=== PATIENT | male | born 1935 | race Caucasian/White ===

== ENCOUNTER 2016-10-01 07:17 | Outpatient (CLI) | payer MEDICARE, OTHER | END 2016-10-01 07:18 | disposition home or self-care (01) | DX: Z12.5 Encounter for screening for malignant neoplasm of prostate (principal); E78.5 Hyperlipidemia, unspecified; H53.2 Diplopia; R73.01 Impaired fasting glucose; Z79.899 Other long term (current) drug therapy; I10 Essential (primary) hypertension; I25.10 Atherosclerotic heart disease of native coronary artery without angina pectoris; K21.9 Gastro-esophageal reflux disease without esophagitis | CPT/HCPCS: 36415; 80053; 80061; 83036; 84443; 85025; 85651; 86140; G0103 ==

== ENCOUNTER 2017-05-01 15:10 | Outpatient (CLI) | payer MEDICARE, OTHER | END 2017-05-01 15:11 | disposition home or self-care (01) | LOC: LAB 15:10 | PROVIDERS: ATTEND Urology | DX: R97.20 Elevated prostate specific antigen [PSA] (principal) | CPT/HCPCS: 36415; 84153 ==

== ENCOUNTER 2017-05-20 08:08 | Outpatient (CLI) | payer MEDICARE, OTHER ==
[2017-05-20 08:40] LABS: BASOPHILS % (AUTO) 0.9 %; EOSINOPHILS # (AUTO) 0.3 10^3/uL (0.0-0.7); EOSINOPHILS % (AUTO) 6.4 %; HCT - HEMATOCRIT 43.6 % (42.0-52.0); HGB - HEMOGLOBIN 14.5 g/dL (14.0-18.0); LYMPHOCYTES # (AUTO) 1.5 10^3/uL (1.5-3.5); LYMPHOCYTES % (AUTO) 31.2 %; MEAN CORPUSCULAR HEMOGLOBIN 29.4 pg (27.0-31.0); MEAN CORPUSCULAR HGB CONC 33.2 g/dL (32.0-36.0); MEAN CORPUSCULAR VOLUME 88.5 fL (80.0-94.0); MEAN PLATELET VOLUME 8.5 fL (7.4-11.4); MONOCYTES # (AUTO) 0.5 10^3/uL (0.0-1.0); MONOCYTES % (AUTO) 10.5 %; NEUTROPHILS # (AUTO) 2.5 10^3/uL (1.5-6.6); NUCLEATED RED BLOOD CELLS AUTO 0.1 /100WBC; RED BLOOD COUNT 4.93 10^6/uL (4.70-6.10); RED CELL DISTRIBUTION WIDTH 13.2 % (12.0-15.0); UNCORRECTED WHITE BLOOD COUNT 4.9 x10^3/uL; WHITE BLOOD COUNT 4.9 x10^3/uL (4.8-10.8)
[2017-05-20 08:59] LABS: HEMOGLOBIN A1C 0.57 g/dL
[2017-05-20 09:13] LABS: ALBUMIN/GLOBULIN RATIO 1.4 (1.0-2.2); BILIRUBIN,TOTAL 1.1 mg/dL (0.2-1.0); BUN - BLOOD UREA NITROGEN 18 mg/dL (6-20); CALCIUM 9.2 mg/dL (8.5-10.3); CARBON DIOXIDE - CO2 26 mmol/L (21-32); CHLORIDE 104 mmol/L (101-111); CHOL/HDL RATIO 2.4 (<5.0); CHOLESTEROL 129 mg/dL; GFR - MDRD 72 (>89); GLUCOSE 97 mg/dL (70-100); HDL CHOLESTEROL 54 mg/dL; LDL/HDL RATIO 1.2 (<3.6); POTASSIUM 4.4 mmol/L (3.5-5.0); SODIUM 138 mmol/L (135-145); TRIGLYCERIDES 43 mg/dL; VLDL CHOLESTEROL 9 mg/dL
== END 2017-05-20 08:09 | disposition home or self-care (01) ==
LOC: LAB 08:08
PROVIDERS: ATTEND Internal Medicine
DX: Z79.899 Other long term (current) drug therapy (principal); I10 Essential (primary) hypertension; I25.10 Atherosclerotic heart disease of native coronary artery without angina pectoris; K21.9 Gastro-esophageal reflux disease without esophagitis; E78.5 Hyperlipidemia, unspecified; R73.01 Impaired fasting glucose; R09.82 Postnasal drip
CPT/HCPCS: 36415; 80053; 80061; 82550; 83036; 84443; 85025

== ENCOUNTER 2017-10-01 07:19 | Day surgery (SDC) | payer MEDICARE, OTHER ==
[~2017-10-01 07:19] MED LIST: BRIMONIDINE 0.2% OPHTH DROPS 5 ML ONE; CYCLOPENTOLATE 1% OPHTH DROPS 2 ML ONE; KETOROLAC 0.45% OPHTH DROPS ONE; LACTATED RINGERS 1,000 ML IV ONE; PHENYLEPHRINE 2.5% OPHTH 2 ML DROPS ONE; PROPARACAINE 0.5% OPHTH DROPS 15 ML ONE; TIMOLOL 0.5% OPHTH DROPS ONE
[2017-10-01] MEDS ORDERED: MIDAZOLAM 2 MG/2 ML VIAL IVP ONE (08:13)
[2017-10-01] MEDS ORDERED: fentaNYL 100 MCG/2 ML VIAL IVP ONE (08:13)
[2017-10-01 09:02] VITALS: BP 118/59
== END 2017-10-01 07:20 | disposition home or self-care (01) ==
LOC: SDS 07:19
PROVIDERS: ATTEND Surgery
PROC: 0DBK8ZX Excision of Ascending Colon, Via Natural or Artificial Opening Endoscopic, Diagnostic (ICD-10-PCS; principal; 2017-10-01 08:15)
DX: R19.4 Change in bowel habit (principal); K57.30 Diverticulosis of large intestine without perforation or abscess without bleeding; K64.8 Other hemorrhoids; K63.5 Polyp of colon; Z86.010 Personal history of colon polyps; K21.9 Gastro-esophageal reflux disease without esophagitis; F17.210 Nicotine dependence, cigarettes, uncomplicated
CPT/HCPCS: 45385; A9270; J7120

== ENCOUNTER 2018-05-18 13:38 | Outpatient (CLI) | payer MEDICARE, OTHER | END 2018-05-18 13:39 | disposition home or self-care (01) | LOC: LAB.F 13:38 | PROVIDERS: ATTEND Urology | DX: R97.20 Elevated prostate specific antigen [PSA] (principal) | CPT/HCPCS: 36415; 84153 ==

== ENCOUNTER 2018-06-28 10:39 | Outpatient (CLI) | payer MEDICARE, OTHER ==
[2018-06-28 11:08] LABS: CREATININE 0.9 mg/dL (0.6-1.2)
[2018-06-28] MEDS ORDERED: IOVERSOL 320 50 ML VIAL ONE (11:36)
[2018-06-28] MEDS ORDERED: IOVERSOL 320 100 ML VIAL IVP ONE ×2 (11:36→13:12)
[2018-06-28] MEDS ORDERED: IOVERSOL 320 50 ML VIAL PO ONE (13:12)
--- NOTE | 2018-06-28 14:37 | CT Report ---
Reason: LIVER LESION Procedure Date: 06/28/2018 Accession Number: [id number] / [id number] Procedure: CT - Abdomen W/WO CPT Code: FULL RESULT: EXAM: CT ABDOMEN WITHOUT AND WITH CONTRAST EXAM DATE: 06/28/2018 12:35 PM. HISTORY: Liver lesion. COMPARISON: CT ABDOMEN/PELVIS WITH CONTRAST 08/23/2017 1:19 PM. TECHNIQUE: Routine helical CT imaging was performed through the abdomen before and after administration of IV contrast: OPTIRAY 320 90mL. Enteric contrast: Yes. Reconstruction: Coronal and sagittal. In accordance with CT protocol optimization, one or more of the following dose reduction techniques were utilized for this exam: automated exposure control, adjustment of mA and/or KV based on patient size, or use of iterative reconstructive technique. FINDINGS: Lung Bases: Unremarkable. Liver: A subcentimeter segment Jesse hypodensity which is too small to characterize is redemonstrated, essentially unchanged. No suspicious hepatic lesion is seen. Gallbladder/Bile Ducts: Unremarkable. Spleen: Normal. Pancreas: Normal. No masses or ductal obstruction. Adrenal Glands: Normal. Kidneys: Normal. No masses or hydronephrosis. Peritoneal Cavity/Bowel: Normal. No free fluid, free air or adenopathy. No masses or acute inflammatory process. Vasculature: Marked atherosclerotic disease with a previously demonstrated left common iliac artery aneurysm which is incompletely imaged on this study. Bones: No significant abnormality. Other: None. IMPRESSION: Redemonstration of a stable subcentimeter hepatic hypodensity which is too to characterize. No suspicious hepatic lesions. Left common iliac artery aneurysm, incompletely visualized. Recommend annual surveillance with CT. The aneurysm measured 2.5 cm in August. Repair is generally performed at 3.5 cm or greater. RADIA
== END 2018-06-28 10:40 | disposition home or self-care (01) ==
LOC: LAB 10:39 → DI 10:40
PROVIDERS: ATTEND Internal Medicine
DX: K76.9 Liver disease, unspecified (principal); I72.3 Aneurysm of iliac artery
CPT/HCPCS: 36415; 74170; 82565; Q9967

== ENCOUNTER 2018-11-25 09:55 | Outpatient (CLI) | payer MEDICARE, OTHER ==
--- NOTE | 2018-11-25 13:56 | Mammography Report ---
Reason: L BREAST LUMP 8 O'CLOCK Procedure Date: 11/25/2018 Accession Number: [id number] / [id number] Procedure: ANNALEE - Diagnostic Dig Bilat CPT Code: FULL RESULT: EXAM: Diagnostic Dig Bilat DATE: 11/25/2018 10:32 AM CLINICAL HISTORY: Diagnostic examination. The patient presents with interval enlargement of a previously worked up left breast lump, previously characterized as lipoma. TECHNIQUE: (B) - Bilateral CC and MLO views were obtained. COMPARISON: 01/22/2015 and 03/20/2009. PARENCHYMAL PATTERN: (F) - The breast(s) demonstrate(s) diffuse fatty replacement. FINDINGS: Normal breast parenchymal tissue is identified. The region marked as palpable in the left breast demonstrates no mammographic abnormality. This is consistent with the previously identified lipoma which is isodense to nonglandular breast tissue. There are no suspicious masses, calcifications, or areas of distortion. IMPRESSION: Negative examination. BI-RADS category 1. RECOMMENDATION: (CLIN) - Clinical follow-up for symptoms is recommended. BI-RADS CATEGORY: (1) - Negative. STANDARD QUALIFYING STATEMENTS: 1. This examination was not reviewed with the aid of Computer-Aided Detection (CAD). 2. A negative or benign imaging report should not preclude biopsy if clinically suspicious findings are present. 3. Dense breasts may obscure an underlying neoplasm. 4. This examination was reviewed without the aid of 3D breast imaging (tomosynthesis).
== END 2018-11-25 09:56 | disposition home or self-care (01) ==
LOC: DI 09:55
PROVIDERS: ATTEND Internal Medicine
DX: N63.24 Unspecified lump in the left breast, lower inner quadrant (principal)
CPT/HCPCS: 77066

== ENCOUNTER 2019-04-15 13:39 | Outpatient (CLI) | payer MEDICARE, OTHER | END 2019-04-15 13:40 | disposition home or self-care (01) | LOC: LAB.S 13:39 | PROVIDERS: ATTEND Urology | DX: Z87.898 Personal history of other specified conditions (principal); Z98.890 Other specified postprocedural states; Z12.5 Encounter for screening for malignant neoplasm of prostate | CPT/HCPCS: 36415; G0103; 84153 ==

== ENCOUNTER 2019-06-09 12:06 | Outpatient (CLI) | payer MEDICARE, OTHER ==
[2019-06-09 12:49] LABS: ALBUMIN/GLOBULIN RATIO 1.3 (1.0-2.2); ALKALINE PHOSPHATASE 49 IU/L (42-121); ALT ALANINE AMINOTRANSFERASE 19 IU/L (10-60); AST ASPARTATE AMINOTRANSFERASE 22 IU/L (10-42); BILIRUBIN,TOTAL 0.9 mg/dL (0.2-1.0); BUN - BLOOD UREA NITROGEN 19 mg/dL (6-20); CALCIUM 9.1 mg/dL (8.5-10.3); CARBON DIOXIDE - CO2 29 mmol/L (21-32); CHLORIDE 105 mmol/L (101-111); CHOL/HDL RATIO 2.2 (<5.0); CHOLESTEROL 117 mg/dL; CREATININE 0.9 mg/dL (0.6-1.2); GFR - MDRD 81 (>89); GLUCOSE 104 mg/dL (70-100); HDL CHOLESTEROL 54 mg/dL; LDL CHOLESTEROL,CALCULATED 50 mg/dL; LDL/HDL RATIO 0.9 (<3.6); SODIUM 140 mmol/L (135-145); TOTAL PROTEIN 7.2 g/dL (6.7-8.2); VLDL CHOLESTEROL 13 mg/dL
== END 2019-06-09 12:07 | disposition home or self-care (01) ==
LOC: LAB 12:06
PROVIDERS: ATTEND Internal Medicine Cardiovascular Disease
DX: E78.5 Hyperlipidemia, unspecified (principal); I25.10 Atherosclerotic heart disease of native coronary artery without angina pectoris
CPT/HCPCS: 36415; 80053; 80061; 83721

== ENCOUNTER 2019-06-17 10:47 | Outpatient (CLI) | payer MEDICARE, OTHER ==
[2019-06-17] MEDS ORDERED: IOVERSOL 320 100 ML VIAL IVP ONE ×2 (10:56→12:04)
[2019-06-17 11:28] LABS: CREATININE 0.9 mg/dL (0.6-1.2)
--- NOTE | 2019-06-17 14:53 | CT Report ---
Reason: LT COMMON ILIAC ARTERY ANEURYSM Procedure Date: 06/17/2019 Accession Number: [id number] / [id number] Procedure: CT - ANGIO PELVIS W/WO CPT Code: Final Report FULL RESULT: EXAM: CT PELVIS EXAM DATE: 06/17/2019 12:02 PM. CLINICAL HISTORY: LT COMMON ILIAC ARTERY ANEURYSM. COMPARISONS: ABDOMEN W/WO 06/28/2018 12:07 PM ABDOMEN ANGIO 06/17/2019 11:[address] ABDOMEN / PELVIS WITH CONTRAST 08/23/2017 1:19 PM. TECHNIQUE: Routine helical CT imaging was performed through the pelvis. IV contrast: OPTI 320 100ML. Enteric contrast: No. Reconstructions: Coronal and sagittal. In accordance with CT protocol optimization, one or more of the following dose reduction techniques were utilized for this exam: automated exposure control, adjustment of mA and/or KV based on patient size, or use of iterative reconstructive technique. FINDINGS: Visualized Abdominal Organs: Normal. Peritoneal Cavity/Bowel: Normal. No free fluid, free air or adenopathy. No masses or acute inflammatory process. Scattered sigmoid colonic diverticula. The appendix is well visualized and normal. Pelvic Organs: Unremarkable urinary bladder. Enlarged prostate measuring 6 cm width. No enlarged pelvic lymph nodes. Rectum appears unremarkable. Vasculature: Mild to moderate scattered calcifications in the distal abdominal aorta and common iliac arteries bilaterally. The distal aspect of the left common iliac artery is aneurysmal measuring 2.6 cm in caliber. The mid right common iliac artery is ectatic measuring 1.7 cm in caliber. The external iliac arteries and common femoral arteries bilaterally are normal in caliber. No flow-limiting stenoses identified. Hypogastric arteries are also unremarkable. Bones: No significant abnormality. Other: None. IMPRESSION: 1. Essentially stable left common iliac artery aneurysm measuring up to 2.6 cm in caliber. No evidence for rupture. 2. Unchanged ectasia of the right common iliac artery measuring up to 1.7 cm caliber. 3. Mild to moderate atherosclerotic calcification of the distal abdominal aorta and bilateral common iliac arteries. No evidence of flow-limiting stenosis. RADIA
--- NOTE | 2019-06-17 17:23 | CT Report ---
Reason: LT COMMON ILIAC ARTERY ANEURYSM Procedure Date: 06/17/2019 Accession Number: [id number] / [id number] Procedure: CT - ANGIO ABDOMEN W/WO CPT Code: Final Report FULL RESULT: EXAM: CTA ABDOMEN INDICATION: Left common iliac artery aneurysm. TECHNIQUE: Following intravenous administration of Optiray 320 100 mL, axial sections were obtained through the abdomen. Multiplanar 3D reconstructions are available for interpretation. In accordance with CT protocol optimization, one or more of the following dose reduction techniques were utilized for this exam: automated exposure control, adjustment of mA and/or KV based on patient size, or use of iterative reconstructive technique. COMPARISON: ABDOMEN W/WO 06/28/2018. FINDINGS: MEASUREMENTS: At the level of the diaphragm, the aorta measures 28 mm. Above the renal arteries, the aorta measures 23 mm. Below the renal arteries, the aorta measures 22 mm. Above the iliac bifurcation, the aorta measures 21 mm. UPPER ABDOMINAL AORTA: Peripheral calcified and noncalcified plaque is seen in the upper abdominal aorta. No dissection or aneurysm. MESENTERIC ARTERIES: Distally the celiac artery is prominent measuring 11 mm, as before. Splenic artery and hepatic artery are patent. SMA is widely patent with mild atheromatous disease. TASHI is patent. No severe stenosis. RENAL ARTERIES: Single renal arteries are present. Mild atheromatous disease is seen in the renal arteries proximally without evidence for significant stenosis. No aneurysm or occlusion. CT ABDOMEN AND PELVIS: Bibasilar scar/atelectasis. Heart size upper normal. Small hiatal hernia. Liver, spleen, adrenals and pancreas are unremarkable. Kidneys enhance symmetrically. No hydronephrosis. No ureteral dilatation. Stomach is mildly distended and unremarkable. No small-bowel obstruction or small-bowel wall thickening is identified. Several diverticula are seen in differing portions of the colon. Small volume of stool is seen in the visualized colon. No evidence for diverticulitis. Visualized appendix is normal. No enlarged retroperitoneal or mesenteric lymph nodes. Degenerative changes of the lower thoracic and lumbar spine. 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 IMPRESSION: 1. Atheromatous disease of the abdominal aorta. No evidence for aneurysm or dissection. RAD[facility]
== END 2019-06-17 10:48 | disposition home or self-care (01) ==
LOC: LAB 10:47 → DI 10:48
PROVIDERS: ATTEND Internal Medicine
DX: I72.3 Aneurysm of iliac artery (principal); I70.0 Atherosclerosis of aorta; I70.8 Atherosclerosis of other arteries
CPT/HCPCS: 36415; 74174; 82565; Q9967; 72191; 74175

== ENCOUNTER 2020-06-21 11:14 | Outpatient (CLI) | payer MEDICARE, OTHER ==
[2020-06-21] MEDS ORDERED: IOVERSOL 320 100 ML VIAL IVP ONE ×2 (11:34→13:29)
--- NOTE | 2020-06-21 15:31 | CT Report ---
PROCEDURE: ANGIO PELVIS W/WO INDICATIONS: COMMON ILIAC ARTERY ANEURYSM TECHNIQUE: Axial 5 mm thin sections through the pelvis were obtained during arterial phase of contras t infusion COMPARISON: Similar CT scanning 06/17/2019 reviewed.. FINDINGS: Tortuosity of the common iliac arteries bilaterally is stable over time, greater on the left than the right. The maximal axial dimension of the left common iliac artery through the area of tortuosity is 2.6 cm, as was previously the case 1 year ago. No evidence of dissection or perianeurysmal fibrosis or aneurysm leak is present. Ectasia of the right common iliac artery also is stable over time. The c ourse of the external iliac arteries bilaterally is normal and no common femoral aneurysm is suspecte d. IMPRESSION: Stable 2.6 cm aneurysmal dilatation of the left common iliac artery, which is also tortuous as was pr eviously the case to the same degree. This is in reference to the comparison similar CT from 1 year a go. No worrisome findings that would indicate aneurysm leak or development of dissection. Reviewed by: Misael Conte MD on 06/21/2020 3:30 PM PST Approved by: Misael Conte MD on 06/21/2020 3:30 PM PST Station ID: [id number]
--- NOTE | 2020-06-21 17:01 | CT Report ---
PROCEDURE: ANGIO ABDOMEN W/WO INDICATIONS: COMMON ILIAC ARTERY ANEURYSM TECHNIQUE: Axial 5 mm thin sections through the lower chest and abdomen were obtained during contrast infusion optimize for arterial visualization. COMPARISON: Prior CT abdomen angiogram 06/17/2019. FINDINGS: No aortic stenosis or dissection is found. Mild ectasia of the low thoracic aorta, but eccentric or f usiform aneurysm within the abdomen is not seen to the level of the pelvis. 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 No abdominal aortic aneurysm or dissection or stenosis i s found. Reviewed by: Misael Conte MD on 06/21/2020 5:00 PM PST Approved by: Misael Conte MD on 06/21/2020 5:00 PM PST Station ID: [id number]
== END 2020-06-21 11:15 | disposition home or self-care (01) ==
LOC: DI 11:14
PROVIDERS: ATTEND Internal Medicine
DX: I72.3 Aneurysm of iliac artery (principal); Z79.899 Other long term (current) drug therapy
CPT/HCPCS: 36415; 72191; 74175; 82565; Q9967

== ENCOUNTER 2021-04-22 07:52 | Outpatient (CLI) | payer MEDICARE, OTHER ==
[2021-04-22 08:18] LABS: BASOPHILS # (AUTO) 0.1 10^3/uL (0.0-0.1); BASOPHILS % (AUTO) 1.2 %; EOSINOPHILS # (AUTO) 0.3 10^3/uL (0.0-0.7); EOSINOPHILS % (AUTO) 7.4 %; HGB - HEMOGLOBIN 13.6 g/dL (14.0-18.0); LYMPHOCYTES # (AUTO) 1.4 10^3/uL (1.5-3.5); LYMPHOCYTES % (AUTO) 31.9 %; MEAN CORPUSCULAR HGB CONC 32.4 g/dL (32.0-36.0); MEAN CORPUSCULAR VOLUME 92.5 fL (80.0-94.0); MEAN PLATELET VOLUME 10.9 fL (7.4-11.4); MONOCYTES # (AUTO) 0.5 10^3/uL (0.0-1.0); MONOCYTES % (AUTO) 11.6 %; NEUTROPHILS # (AUTO) 2.1 10^3/uL (1.5-6.6); NEUTROPHILS % (AUTO) 47.7 %; PLT - PLATELET COUNT 166 10^3/uL (130-450); RED BLOOD COUNT 4.54 10^6/uL (4.70-6.10); WHITE BLOOD COUNT 4.3 x10^3/uL (4.8-10.8)
[2021-04-22 08:35] LABS: ALBUMIN 4.4 g/dL (3.2-5.5); ALBUMIN/GLOBULIN RATIO 1.8 (1.0-2.2); ALKALINE PHOSPHATASE 52 IU/L (42-121); ALT ALANINE AMINOTRANSFERASE 19 IU/L (10-60); AST ASPARTATE AMINOTRANSFERASE 22 IU/L (10-42); BILIRUBIN,TOTAL 0.8 mg/dL (0.2-1.0); BUN - BLOOD UREA NITROGEN 18 mg/dL (6-20); CALCIUM 9.3 mg/dL (8.5-10.3); CARBON DIOXIDE - CO2 28 mmol/L (21-32); CHLORIDE 104 mmol/L (101-111); CHOL/HDL RATIO 2.3 (<5.0); CHOLESTEROL 136 mg/dL; CREATININE 0.9 mg/dL (0.6-1.2); GFR - MDRD 80 (>89); GLUCOSE 102 mg/dL (70-100); HDL CHOLESTEROL 60 mg/dL; LDL CHOLESTEROL,CALCULATED 68 mg/dL; LDL/HDL RATIO 1.1 (<3.6); POTASSIUM 4.5 mmol/L (3.5-5.0); SODIUM 139 mmol/L (135-145); TOTAL PROTEIN 6.9 g/dL (6.7-8.2); TRIGLYCERIDES 41 mg/dL; VLDL CHOLESTEROL 8 mg/dL
[2021-04-22 09:10] LABS: PSA FREE 2.235 ng/mL (0.16-2.81)
[2021-04-22 09:11] LABS: PSA TOTAL 6.901 ng/mL (0.000-2.000)
[2021-04-22 13:17] LABS: ESTIMATED AVERAGE GLUCOSE 100 mg/dL (70-100); HEMOGLOBIN A1c% 5.1 % (4.27-6.07)
== END 2021-04-22 07:53 | disposition home or self-care (01) ==
LOC: LAB 07:52
PROVIDERS: ATTEND Internal Medicine
DX: Z13.6 Encounter for screening for cardiovascular disorders (principal); Z79.899 Other long term (current) drug therapy; I10 Essential (primary) hypertension; I25.10 Atherosclerotic heart disease of native coronary artery without angina pectoris; R97.20 Elevated prostate specific antigen [PSA]; R73.01 Impaired fasting glucose; K21.9 Gastro-esophageal reflux disease without esophagitis; E78.5 Hyperlipidemia, unspecified; C44.91 Basal cell carcinoma of skin, unspecified
CPT/HCPCS: 36415; 80053; 80061; 82306; 83036; 83721; 84153; 84154; 84443; 85025

== ENCOUNTER 2021-07-30 09:20 | Outpatient (CLI) | payer MEDICARE, OTHER ==
--- NOTE | 2021-07-30 16:36 | MRI Report ---
PROCEDURE: Knee LT W/O INDICATIONS: LEFT KNEE PAIN TECHNIQUE: Noncontrast sagittal PD fast spin echo and T2 fast spin echo with fat saturation, sagittal 3-D gradie nt sequence with fat saturation; coronal T1 spin echo and PD fast spin echo with fat saturation, and axial PD fast spin echo with fat saturation through the knee. COMPARISON: Left knee radiograph dated 03/19/2010. FINDINGS: Image quality: Excellent. Menisci: Complex oblique tear involving body/posterior horn junction of medial meniscus extending to both superior and inferior articulating surfaces. There is no evidence of focal lateral meniscal tear .. The meniscal root ligaments appear intact. Cruciate ligaments: Degenerative changes are noted in anterior and posterior cruciate ligaments. No f ull-thickness ACL or PCL ruptures. Medial structures: Low-grade MCL sprain is seen.. The posterior oblique ligament, semimembranosus te ndon insertions, and oblique popliteal ligament, and meniscocapsular junction appear intact. Visuali zed portions of the pes anserinus tendons appear normal. No abnormal bursal fluid. Lateral structures: There is low to moderate grade LCL sprain/partial thickness tear. The long and sh ort heads of the biceps femoris tendon appear intact. The popliteus tendon appears normal; the popli teofibular ligament appears intact. The posterosuperior and anteroinferior popliteomeniscal fascicle s appear intact. The arcuate and fabellofibular ligaments appear intact, around the lateral inferior geniculate artery. Iliotibial band appears normal. Anterior structures: The quadriceps and patellar tendons appear intact. Patellar alignment is john l. No femoral trochlear dysplasia or ventral trochlear prominence. No edema in the infrapatellar fa t pad. Bones and cartilage: No bone marrow contusions or fractures. Moderate tricompartmental osteoarthriti s and chondromalacia is seen most prominent in medial femoral tibial compartment. Joint space: There is physiologic knee joint fluid. No Wu's cyst. Normal appearing synovial pli are incidentally noted. IMPRESSION: 1. 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 No fracture or dislocation. No significant joint effusion. 2. Complex oblique tear involving body/posterior horn junction of medial meniscus extending to both s uperior and inferior articulating surfaces. No focal lateral meniscal tear. 3. Degenerative changes in ACL and PCL. No full-thickness cruciate ligament rupture. 4. Low-grade MCL sprain. Low to moderate grade LCL sprain/partial thickness tear. Reviewed by: Saúl Silva MD on 07/30/2021 4:35 PM PST Approved by: Saúl Silva MD on 07/30/2021 4:35 PM PST Station ID: [id number]
== END 2021-07-30 09:21 | disposition home or self-care (01) ==
LOC: DI 09:20
PROVIDERS: ATTEND Internal Medicine
DX: M17.12 Unilateral primary osteoarthritis, left knee (principal); S83.232A Complex tear of medial meniscus, current injury, left knee, initial encounter; S83.412A Sprain of medial collateral ligament of left knee, initial encounter; S83.422A Sprain of lateral collateral ligament of left knee, initial encounter

== ENCOUNTER 2021-08-17 14:34 | Outpatient (CLI) | payer MEDICARE, OTHER ==
--- NOTE | 2021-08-17 16:59 | Ultrasound Report ---
PROCEDURE: Carotid Doppler Complete INDICATIONS: CAD, STENOSIS OF CAROTID ARTERY TECHNIQUE: Color and pulse Doppler interrogation was performed of both carotid systems, with image documentation and velocity measurements. COMPARISON: None. FINDINGS: Right side: Brachial blood pressure: 143/76 mm Hg. Common carotid artery peak systolic velocity: 104 cm/sec. Internal carotid artery peak systolic velocity: 71 cm/sec. Internal carotid artery end diastolic velocity: 16 cm/sec. External carotid artery peak systolic velocity: 77 cm/sec. ICA/CCA peak systolic ratio: 0.7 . Hunter scale imaging description: Mild Percent internal carotid artery stenosis: Mild . Vertebral artery: Flow direction is antegrade. Left side: Brachial blood pressure: 146/72 mm Hg. Common carotid artery peak systolic velocity: 81 cm/sec. Internal carotid artery peak systolic velocity: 54 cm/sec. Internal carotid artery end diastolic velocity: 19 cm/sec. External carotid artery peak systolic velocity: 84 cm/sec. ICA/CCA peak systolic ratio: 0.6 . Hunter scale imaging description: Mild Percent internal carotid artery stenosis: None . Vertebral artery: Flow direction is antegrade. IMPRESSION: Atherosclerotic calcification noted in the right proximal internal carotid artery without evidence of hemodynamically significant stenosis bilaterally. The estimate of stenosis included in the report of the imaging study was calculated using the NASCET method Reviewed by: Alec Chavez MD on 08/17/2021 3:57 PM [facility] Approved by: Alec Chavez MD on 08/17/2021 3:57 PM [facility] Station ID: [id number]
== END 2021-08-17 14:35 | disposition home or self-care (01) ==
LOC: DI 14:34
PROVIDERS: ATTEND Internal Medicine Cardiovascular Disease
DX: I65.21 Occlusion and stenosis of right carotid artery (principal)
CPT/HCPCS: 93880

== ENCOUNTER 2022-01-01 07:36 | Outpatient (CLI) | payer MEDICARE, OTHER ==
--- NOTE | 2022-01-01 08:23 | Ultrasound Report ---
PROCEDURE: Duplex Ext Veins Left INDICATIONS: PAIN L LEG TECHNIQUE: Real-time imaging, as well as color and pulse Doppler interrogation, were performed of the lower extr emity deep veins from the inguinal ligament to the popliteal fossa. COMPARISON: None. FINDINGS: The deep veins are normally compressible, and free of intraluminal thrombus. Color and pu lse Doppler demonstrate normal phasic intraluminal flow. There is normal augmentation response to di stal compression maneuver. IMPRESSION: No sonographic evidence of DVT. Reviewed by: Celso Henderson MD on 01/01/2022 8:21 AM PDT Approved by: Celso Henderson MD on 01/01/2022 8:21 AM PDT Station ID: [id number]
== END 2022-01-01 07:37 | disposition home or self-care (01) ==
LOC: DI 07:36
PROVIDERS: ATTEND Internal Medicine
DX: M79.605 Pain in left leg (principal)

== ENCOUNTER 2022-04-11 09:43 | Outpatient (CLI) | payer MEDICARE, OTHER ==
--- NOTE | 2022-04-11 16:02 | Ultrasound Report ---
PROCEDURE: Duplex Aorta Complete INDICATIONS: LEFT ILIAC ARTERY ANEURYSM TECHNIQUE: Doppler and brewer scale ultrasound of the aorta and iliacs. COMPARISON: CT abdominal angiogram, 06/21/2020. CT pelvic angiogram, 06/21/2020.. FINDINGS: Proximal abdominal aorta measures 2.8 x 2.6 cm with triphasic waveform and peak systolic velocity 38 cm/s. Mid abdominal aorta measures 2.2 x 2.5 cmwith triphasic waveform and peak systolic velocity 43 cm/s. Distal abdominal aorta measures 2.1 x 2.3 cm with triphasic waveform and peak systolic velocity 37 cm /s. The right common iliac artery measures 2.2 x 2.1 cm with triphasic waveform and peak systolic velocit y 41 cm/s. The left common iliac artery measures 2.2 x 2.4 cm with triphasic waveform and peak systolic velocity 25 cm/s. The external iliacs and common femoral arteries are not well seen due to body habitus. IMPRESSION: 1. Ectatic proximal abdominal aorta. A follow-up ultrasound suggested in 5 years. 2. Normal waveform and peak systolic velocity in aorta and iliac arteries. 3. Ectatic common iliac arteries bilaterally. Reviewed by: Simi Hernandez MD on 04/11/2022 4:01 PM PDT Approved by: Simi Hernandez MD on 04/11/2022 4:01 PM PDT Station ID: [id number]
== END 2022-04-11 09:44 | disposition home or self-care (01) ==
LOC: DI 09:43
PROVIDERS: ATTEND Internal Medicine
DX: I77.811 Abdominal aortic ectasia (principal); I77.89 Other specified disorders of arteries and arterioles
CPT/HCPCS: 93978

== ENCOUNTER 2022-04-17 08:44 | Emergency (ER) | payer MEDICARE, OTHER ==
--- NOTE | 2022-04-17 09:55 | XRAY Report ---
PROCEDURE: Chest 1 View X-Ray INDICATIONS: cough TECHNIQUE: One view of the chest was acquired. COMPARISON: FINDINGS: Surgical changes and devices: None. Lungs and pleura: No pleural effusions or pneumothorax. Mild bilateral perihilar and left greater th an right bibasilar reticulonodular density. Mediastinum: Mediastinal contours appear normal. Heart size is normal. Bones and chest wall: No suspicious bony lesions. Left greater than right glenohumeral joint space narrowing and periarticular osteophyte formation, indicating osteoarthritis. Overlying soft tissues a ppear unremarkable. IMPRESSION: Mild atypical pneumonia. Reviewed by: Zully Oneill MD on 04/17/2022 9:54 AM PDT Approved by: Zully Oneill MD on 04/17/2022 9:54 AM PDT Station ID: [id number]
--- NOTE | 2022-04-17 11:01 | ED Physician Documentation ---
History of Present Illness - Stated complaint Stated Complaint: COUGH/ SHIVERS - Chief complaint Chief Complaint: General - History obtained from History obtained from: Patient - Additonal information Additional information: Patient is a 6-year-old male presenting for evaluation of cough for 2 days which is productive of clear phlegm as well as feeling cold. His recently tested positive for COVID. He has not taken a COVID test. He denies difficulty breathing or chest pain. He is not taking any medications for his symptoms. He has been able to hydrate. He denies headache, abdominal pain, vomiting, dysuria. He denies lower extremity swelling or pain. Review of Systems Constitutional: reports: Chills Nose: reports: Congestion Cardiac: denies: Chest pain / pressure Respiratory: reports: Cough. denies: Dyspnea GI: denies: Abdominal Pain Musculoskeletal: denies: Back pain Neurologic: denies: Headache PD PAST MEDICAL HISTORY - Past Medical History Cardiovascular: High cholesterol, Coronary artery disease, [place] Respiratory: None Endocrine/Autoimmune: None GI: GERD, Diverticulitis : None HEENT: None Musculoskeletal: None - Past Surgical History Past Surgical History: Yes General: Other Ortho: Arthroscopic surgery Cardiovascular: Coronary stent - Present Medications Home Medications: Ambulatory Orders Medication Instructions Recorded Confirmed Aspirin [Aspir 81] 81 mg PO DAILY 04/07/13 10/01/17 Metoprolol Succinate [Toprol Xl] 25 mg PO DAILY 04/07/13 10/01/17 Omeprazole Magnesium [Prilosec] 10 mg PO DAILY 04/07/13 10/01/17 Rosuvastatin Calcium [Crestor] 20 mg PO DAILY 10/28/15 10/01/17 Finasteride 5 mg PO DAILY #15 tablet 07/19/16 10/01/17 Doxycycline Monohydrate 100 mg PO BID #10 cap 04/17/22 - Allergies Allergies/Adverse Reactions: Allergies Allergy/AdvReac Type Severity Reaction Status Date / Time No Known Drug Allergies Allergy Verified 04/17/22 08:55 - Social History Does the pt smoke?: No Smoking Status: Never smoker Does the pt drink ETOH?: Yes Does the pt have substance abuse?: No - Immunizations Immunizations are current?: Yes Immunizations: TDAP current <10years - POLST Patient has POLST: No PD ED PE NORMAL - General General: Alert and oriented X 3, No acute distress, Well developed/nourished - HEENT HEENT: Atraumatic, Moist mucous membranes - Neck Neck: Supple, no meningeal sign - Cardiac Cardiac: RRR, No murmur, Strong equal pulses - Respiratory Respiratory: No respiratory distress, Clear bilaterally - Abdomen Abdomen: Non tender, Non distended - Derm Derm: Warm and dry - Extremities Extremities: No edema - Neuro Neuro: Normal speech Results - Vitals Vitals: Vital Signs - 24 hr 04/17/22 04/17/22 08:47 11:08 Temperature 37.6 C 37.1 C Heart Rate 98 88 Respiratory 16 16 Rate Blood Pressure 152/82 H 157/81 H O2 Saturation 95 97 Oxygen O2 Source Room air - Labs Labs: Laboratory Tests 04/17/22 08:56 SARS-CoV-2 (PCR) DETECTED A PD MEDICAL DECISION MAKING - ED course Complexity details: reviewed results ED course: Patient with URI symptoms. COVID test is positive. has also recently been ill with COVID. Oxygen levels are normal and he is not labored with his breathing. It does not require admission to the hospital for COVID. X-ray had also been done from triage and shows atypical pneumonia. I discussed that the etiology of this pneumonia is likely his COVID but that I could not rule out a superimposed bacterial infection. Discussed risks and benefits of an antibiotic and patient would also like to try an antibiotic at this time. He understands at this may not help his symptoms as again pneumonia may just all be from COVID.He agrees with plan for discharge and is aware of concerning symptoms to return for. Departure - Departure Disposition: 01 Home, Self Care Clinical Impression: Pneumonia due to COVID-19 virus Condition: Stable Instructions: ED Pneumonia Adult, COVID-19 [facility] Prescriptions: Doxycycline Monohydrate 100 mg PO BID #10 cap Comments: You have tested positive for COVID-19. Please quarantine per CDC guidelines. Please continue with hydration and rest. Your chest x-ray shows atypical pneumonia which could be from COVID or a bacterial infection. After a discussion with you, we have decided to start you on an oral antibiotic in case there is a bacterial component. I have sent a prescription for doxycycline to the [facility] pharmacy. If you have any worsening symptoms such as trouble breathing please return to the emergency department. Discharge Date/Time: 04/17/22 11:09
[2022-04-17 11:08] VITALS: BP 157/81
== END 2022-04-17 11:09 | disposition home or self-care (01) ==
LOC: ED 08:44
DX: U07.1 COVID-19 (principal); J12.82 Pneumonia due to coronavirus disease 2019
CPT/HCPCS: 99283

== ENCOUNTER 2022-05-28 07:34 | Outpatient (CLI) | payer MEDICARE, OTHER ==
[2022-05-28 07:54] LABS: BASOPHILS % (AUTO) 0.8 %; EOSINOPHILS # (AUTO) 0.3 10^3/uL (0.0-0.7); EOSINOPHILS % (AUTO) 6.2 %; HCT - HEMATOCRIT 41.9 % (42.0-52.0); HGB - HEMOGLOBIN 13.3 g/dL (14.0-18.0); LYMPHOCYTES # (AUTO) 1.6 10^3/uL (1.5-3.5); LYMPHOCYTES % (AUTO) 31.7 %; MEAN CORPUSCULAR HEMOGLOBIN 27.8 pg (27.0-31.0); MEAN CORPUSCULAR HGB CONC 31.7 g/dL (32.0-36.0); MEAN CORPUSCULAR VOLUME 87.7 fL (80.0-94.0); MEAN PLATELET VOLUME 10.4 fL (7.4-11.4); MONOCYTES # (AUTO) 0.5 10^3/uL (0.0-1.0); MONOCYTES % (AUTO) 10.8 %; NEUTROPHILS # (AUTO) 2.5 10^3/uL (1.5-6.6); NEUTROPHILS % (AUTO) 50.3 %; PLT - PLATELET COUNT 176 10^3/uL (130-450); RED BLOOD COUNT 4.78 10^6/uL (4.70-6.10); RED CELL DISTRIBUTION WIDTH 14.2 % (12.0-15.0)
[2022-05-28 08:16] LABS: ALBUMIN 3.9 g/dL (3.2-5.5); ALBUMIN/GLOBULIN RATIO 1.2 (1.0-2.2); ALKALINE PHOSPHATASE 50 IU/L (42-121); ALT ALANINE AMINOTRANSFERASE 16 IU/L (10-60); AST ASPARTATE AMINOTRANSFERASE 20 IU/L (10-42); BILIRUBIN,TOTAL 0.9 mg/dL (0.2-1.0); BUN - BLOOD UREA NITROGEN 15 mg/dL (6-20); CALCIUM 9.1 mg/dL (8.5-10.3); CARBON DIOXIDE - CO2 28 mmol/L (21-32); CHLORIDE 104 mmol/L (101-111); CHOL/HDL RATIO 2.4 (<5.0); CHOLESTEROL 131 mg/dL; CREATININE 0.9 mg/dL (0.6-1.2); GFR - MDRD 80 (>89); GLUCOSE 110 mg/dL (70-100); HDL CHOLESTEROL 55 mg/dL; LDL CHOLESTEROL,CALCULATED 67 mg/dL; LDL/HDL RATIO 1.2 (<3.6); POTASSIUM 4.2 mmol/L (3.5-5.0); SODIUM 140 mmol/L (135-145); TOTAL PROTEIN 7.2 g/dL (6.7-8.2); TRIGLYCERIDES 47 mg/dL; VLDL CHOLESTEROL 9 mg/dL
[2022-05-28 08:40] LABS: PSA TOTAL 6.75 ng/mL (0.000-2.000)
[2022-05-28 09:11] LABS: ESTIMATED AVERAGE GLUCOSE 117 mg/dL (70-100); HEMOGLOBIN A1c% 5.7 % (4.27-6.07)
[2022-05-28 09:20] LABS: PSA FREE 2.04 ng/mL (0.16-2.81)
== END 2022-05-28 07:35 | disposition home or self-care (01) ==
LOC: LAB 07:34
PROVIDERS: ATTEND Internal Medicine
DX: Z00.00 Encounter for general adult medical examination without abnormal findings (principal); I10 Essential (primary) hypertension; I25.10 Atherosclerotic heart disease of native coronary artery without angina pectoris; E78.5 Hyperlipidemia, unspecified; K57.92 Diverticulitis of intestine, part unspecified, without perforation or abscess without bleeding; K21.9 Gastro-esophageal reflux disease without esophagitis; R73.01 Impaired fasting glucose; R97.20 Elevated prostate specific antigen [PSA]
CPT/HCPCS: 36415; 80053; 80061; 83036; 83721; 84153; 84154; 84443; 85025

== ENCOUNTER 2022-08-23 14:10 | Outpatient (CLI) | payer MEDICARE, OTHER | END 2022-08-23 14:11 | disposition home or self-care (01) | LOC: RT 14:10 | PROVIDERS: ATTEND Orthopaedic Surgery | DX: Z01.818 Encounter for other preprocedural examination (principal) | CPT/HCPCS: 93005 ==

== ENCOUNTER 2022-09-30 13:39 | Outpatient (CLI) | payer MEDICARE, OTHER ==
[2022-09-30] MEDS ORDERED: iohexoL-300 100 ML VIAL ONE (13:49)
[2022-09-30] MEDS ORDERED: DIATR MEGLU/DIATRIZOATE SODIUM 120 ML BOTTLE ONE (13:49)
[2022-09-30] MEDS ORDERED: iohexoL-300 100 ML VIAL IVP ONE (19:15)
[2022-09-30] MEDS ORDERED: DIATRIZOATE MEGLU/DIATRIZO SOD 30 ML BOTTLE PO ONE (20:42)
--- NOTE | 2022-10-01 10:13 | CT Report ---
PROCEDURE: ABDOMEN/PELVIS W INDICATIONS: CHANGE IN STOOL CONTRAST: 100mL Omni 300 TECHNIQUE: After the administration of oral and intravenous contrast, 5 mm thick sections acquired from the diap hragms to the symphysis. 5 mm thick coronal and sagittal reformats were acquired. For radiation dos e reduction, the following was used: automated exposure control, adjustment of mA and/or kV accordin g to patient size. COMPARISON: CT angiogram abdomen, 06/21/2020. CT angiograms pelvis, 06/21/2020. FINDINGS: Image quality: Excellent. ABDOMEN: Lung bases: Lung bases are clear. Heart size is normal. Solid organs: Liver is normal in size. Mild hepatic steatosis. There are several small indeterminate hepatic hypodensities. Spleen is normal in size and enhancement. Gallbladder is normal. Biliary sy stem is non dilated. Pancreas enhances normally. No adrenal nodules. Kidneys demonstrate normal si ze and enhancement, without hydronephrosis. Peritoneum and bowel: Bowel loops demonstrate normal wall thickness and caliber. There is a large am ount of stool in colon. A few colonic diverticula. No diverticulitis. No free fluid or air. Nodes and vessels: No retroperitoneal or mesenteric adenopathy by size criteria. Aorta and inferior vena cava are normal in size. 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 Moderate atherosclerotic calcifications. Miscellaneous: No ventral hernias. PELVIS: Genitourinary: Bladder wall thickness is normal. Prostate is enlarged. Miscellaneous: No inguinal hernias or adenopathy. Bones: No suspicious bony lesions. No vertebral body compression fractures. 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 Chronic posterior wedge deformity of L5 is unchan ged. Degenerative changes in lumbar spine noted. IMPRESSION: 1. No acute abnormality in abdomen or pelvis. 2. Mild diverticulosis. No diverticulitis. 3. A large amount of stool in colon. 4. Small indeterminate hepatic hypodensities are present. Statistically, these are most likely small hepatic cysts. If clinically indicated, ultrasound could be obtained. 5. Stable left common iliac artery aneurysm. 6. Moderate atherosclerosis. 7. Enlargement of prostate. Reviewed by: Simi Hernandez MD on 10/01/2022 9:12 AM AKDT Approved by: Simi Hernandez MD on 10/01/2022 9:12 AM AKDT Station ID: [id number]
== END 2022-09-30 13:40 | disposition home or self-care (01) ==
LOC: DI 13:39
PROVIDERS: ATTEND Internal Medicine
DX: K57.30 Diverticulosis of large intestine without perforation or abscess without bleeding (principal); R16.0 Hepatomegaly, not elsewhere classified; I72.3 Aneurysm of iliac artery; N40.0 Benign prostatic hyperplasia without lower urinary tract symptoms; I70.90 Unspecified atherosclerosis; Z79.899 Other long term (current) drug therapy
CPT/HCPCS: 36415; 74177; 82565; Q9963; Q9967

== ENCOUNTER 2023-01-13 09:46 | Emergency (ER) | payer MEDICARE, OTHER ==
[2023-01-13 10:21] LABS: BASOPHILS % (AUTO) 0.6 %; EOSINOPHILS # (AUTO) 0.2 10^3/uL (0.0-0.7); EOSINOPHILS % (AUTO) 4.2 %; HCT - HEMATOCRIT 42.9 % (42.0-52.0); HGB - HEMOGLOBIN 13.3 g/dL (14.0-18.0); LYMPHOCYTES % (AUTO) 36.3 %; MEAN CORPUSCULAR HEMOGLOBIN 25.9 pg (27.0-31.0); MEAN CORPUSCULAR VOLUME 83.6 fL (80.0-94.0); MEAN PLATELET VOLUME 10.3 fL (7.4-11.4); MONOCYTES # (AUTO) 0.7 10^3/uL (0.0-1.0); MONOCYTES % (AUTO) 12.3 %; NEUTROPHILS # (AUTO) 2.5 10^3/uL (1.5-6.6); NEUTROPHILS % (AUTO) 46.4 %; PLT - PLATELET COUNT 174 10^3/uL (130-450); RED BLOOD COUNT 5.13 10^6/uL (4.70-6.10); RED CELL DISTRIBUTION WIDTH 16.5 % (12.0-15.0); WHITE BLOOD COUNT 5.5 x10^3/uL (4.8-10.8)
[2023-01-13 10:35] LABS: ALBUMIN 4.1 g/dL (3.2-5.5); ALBUMIN/GLOBULIN RATIO 1.1 (1.0-2.2); BILIRUBIN,TOTAL 0.7 mg/dL (0.2-1.0); CALCIUM 9.1 mg/dL (8.5-10.3); CREATININE 0.9 mg/dL (0.6-1.2); POTASSIUM 4.2 mmol/L (3.5-5.0); TOTAL PROTEIN 7.7 g/dL (6.7-8.2)
--- NOTE | 2023-01-13 10:43 | XRAY Report ---
PROCEDURE: Chest 1 View X-Ray INDICATIONS: Chest Pain TECHNIQUE: One view of the chest was acquired. COMPARISON: 04/17/2022 FINDINGS: Surgical changes and devices: None. Lungs and pleura: No dense airspace disease. No pleural effusions. Mediastinum: Mediastinal contours appear normal. Heart size is normal. Bones and chest wall: No suspicious bony lesions. Overlying soft tissues appear unremarkable. IMPRESSION: No acute radiographic abnormality. Reviewed by: Uri Lu MD on 01/13/2023 10:41 AM PDT Approved by: Uri Lu MD on 01/13/2023 10:41 AM PDT Station ID: [id number]
[2023-01-13] MEDS ORDERED: DEXAMETHASONE 10 MG/ML VIAL PO STA (11:58)
[2023-01-13] MEDS ORDERED: CHERRY SYRUP 10 ML UDC PO ONE (11:58)
[2023-01-13] MEDS ORDERED: KETOROLAC 30 MG/ML VIAL IM STA (11:58)
--- NOTE | 2023-01-13 11:59 | ED Physician Documentation ---
PD HPI CHEST PAIN - Stated complaint Stated Complaint: RT SIDE CHEST/ABD PX - Chief complaint Chief Complaint: Cardiac - History obtained from History obtained from: Patient, Family - History of Present Illness Timing - onset: How many days ago (4) Timing - onset during: Rest Timing - duration: Days (4) Timing - details: Gradual onset, Still present Quality: Sharp, Pain Location: Substernal, Right chest Radiation: No: Jaw, Neck, Back, Abdominal, Left upper extremity, Right upper extremity Improved by: Rest Worsened by: Inspiration, Movement, Palpation, Position Associated symptoms: No: Shortness of air, Diaphoresis, Nausea, Vomiting, Feeling faint / dizzy, General Weakness, Palpitations, Cough Similar symptoms before: Has not had sx before Recently seen: Not recently seen - Additional information Additional information: 87-year-old Power Landeros uses the gym frequently and about 4 days ago he began to feel some pain in his right chest wall. The pain is worse when he changes position and is worse when he pushes on it and is worse if he takes a deep breath. He has not had diaphoresis or nausea he has not had lightheadedness or dizziness. He feels that he might of injured himself at the gym but does not remember a specific injury. He has had 2 stents previously and he discovered he needed those when he was on the treadmill. Review of Systems Constitutional: denies: Fever Eyes: denies: Decreased vision Ears: denies: Ear pain Nose: denies: Congestion Throat: denies: Sore throat Cardiac: reports: Chest pain / pressure. denies: Palpitations, Pedal edema, Calf pain Respiratory: denies: Dyspnea, Cough GI: denies: Abdominal Pain, Nausea, Vomiting, Constipation, Diarrhea : denies: Dysuria, Frequency PD PAST MEDICAL HISTORY - Past Medical History Cardiovascular: High cholesterol, Coronary artery disease, [place] Respiratory: None Endocrine/Autoimmune: None GI: GERD, Diverticulitis : None HEENT: None Musculoskeletal: None - Past Surgical History Past Surgical History: Yes General: Other Ortho: Arthroscopic surgery Cardiovascular: Coronary stent - Present Medications Home Medications: Ambulatory Orders Medication Instructions Recorded Confirmed Aspirin [Aspir 81] 81 mg PO DAILY 04/07/13 10/01/17 Metoprolol Succinate [Toprol Xl] 25 mg PO DAILY 04/07/13 10/01/17 Omeprazole Magnesium [Prilosec] 10 mg PO DAILY 04/07/13 10/01/17 Rosuvastatin Calcium [Crestor] 20 mg PO DAILY 10/28/15 10/01/17 Finasteride 5 mg PO DAILY #15 tablet 07/19/16 10/01/17 Doxycycline Monohydrate 100 mg PO BID #10 cap 04/17/22 Meloxicam [Mobic] 7.5 mg PO BID PRN #20 tablet 01/13/23 - Allergies Allergies/Adverse Reactions: Allergies Allergy/AdvReac Type Severity Reaction Status Date / Time No Known Drug Allergies Allergy Verified 01/13/23 09:58 - Social History Does the pt smoke?: No Smoking Status: Never smoker Does the pt drink ETOH?: Yes Does the pt have substance abuse?: No - Immunizations Immunizations are current?: Yes Immunizations: TDAP current <10years - POLST Patient has POLST: No PD ED PE NORMAL - Vitals Vital signs reviewed: Yes (Hypertensive) - General General: Alert and oriented X 3, No acute distress, Well developed/nourished - HEENT HEENT: Atraumatic, PERRL, EOMI - Neck Neck: Supple, no meningeal sign, No bony TTP - Cardiac Cardiac: RRR, No murmur - Respiratory Respiratory: No respiratory distress, Clear bilaterally, Other (Chest wall tenderness to the right chest along the costal sternal margin and laterally reproducing the pain the patient is seeing us for.) - Abdomen Abdomen: Soft, Non tender - Back Back: No CVA TTP, No spinal TTP - Derm Derm: Normal color, Warm and dry, No rash - Extremities Extremities: No deformity, No edema - Neuro Neuro: Alert and oriented X 3, pricing specialist 2-12 intact, No motor deficit, No sensory deficit, Normal speech Eye Opening: Spontaneous Motor: Obeys Commands Verbal: Oriented GCS Score: 15 - Psych Psych: Normal mood, Normal affect Results - Vitals Vitals: Vital Signs - 24 hr 01/13/23 09:58 Temperature 36.2 C L Heart Rate 67 Respiratory 16 Rate Blood Pressure 183/75 H O2 Saturation 100 Oxygen O2 Source Room air - EKG (time done) 1005 EKG releavant findings:: EKG personally interpreted by author of this note. Relevant findings are: Rate: Rate (enter#) (65) Rhythm: NSR Ischemia: Normal ST segments Compare to prior EKG: Unchanged from prior EKG (SPT 08-23-22 no changes) Computer interpretation: Agree with computer - Labs Labs: Laboratory Tests 01/13/23 01/13/23 01/13/23 10:15 10:15 10:15 WBC 5.5 RBC 5.13 Hgb 13.3 L Hct 42.9 MCV 83.6 MCH 25.9 L MCHC 31.0 L RDW 16.5 H Plt Count 174 MPV 10.3 Neut # (Auto) 2.5 Lymph # (Auto) 2.0 [place] # (Auto) 0.7 Eos # (Auto) 0.2 Baso # (Auto) 0.0 Absolute Nucleated RBC 0.00 Nucleated RBC % 0.0 Sodium 137 Potassium 4.2 Chloride 104 Carbon Dioxide 27 Anion Gap 6.0 BUN 16 Creatinine 0.9 Estimated GFR (MDRD) 80 L Glucose 100 Calcium 9.1 Total Bilirubin 0.7 AST 20 ALT 17 Alkaline Phosphatase 63 Troponin I High Sens 4.3 Total Protein 7.7 Albumin 4.1 Globulin 3.6 Albumin/Globulin Ratio 1.1 Lipase 48 - Rads (name of study) chest Relevant Findings:: Prelim report reviewed (Impression: No acute radiographic abnormality.), EMP independent interpretation of test PD Medical Decision Making - ED course Complexity details: reviewed results, re-evaluated patient, considered differential, d/w patient, d/w family Reviewed Lab Results: We reviewed a complete blood count showing a normal white blood cell count normal hemoglobin hematocrit and platelets with normal indices chemistries were unremarkable with normal electrolytes normal kidney and liver function and a high-sensitivity troponin was normal at 4.3 ED course: Power Landeros is an 87-year-old male with a history of coronary artery disease who presents to the emergency department with chest pain. His chest pain is in the right side and palpation of the chest wall reproduces the symptoms the patient is experiencing. He has a history consistent with costochondritis with excessive use at the gym and 4 days of pain. We did do a cardiac work-up which did not demonstrate any abnormalities. He has normal electrocardiogram normal troponin and normal appearing chest imaging. He is he is diagnosed with costochondritis and he is administered dexamethasone and Toradol for pain control. We will E scribed some meloxicam for the patient to the [facility]. Departure - Departure Disposition: 01 Home, Self Care Clinical Impression: Costochondritis, acute Condition: Stable Instructions: ED Chest Pain Costochondritis Follow-Up: Kayla Garcia MD [Primary Care Provider] - Prescriptions: Meloxicam [Mobic] 7.5 mg PO BID PRN #20 tablet PRN Reason: Pain Comments: Power, today it looks like you have costochondritis or inflammation of the chest wall. This is likely from overuse. Treatment today included the use of dexamethasone and Toradol which are anti-inflammatories. This is usually the type of medication required for treatment. I have E scrib[facility] in [place] for your use. Our expectations with treatment are resolution of your pain within the next 5 to 7 days.
[2023-01-13 12:28] VITALS: BP 180/82
== END 2023-01-13 12:22 | disposition home or self-care (01) ==
LOC: ED 09:46
DX: M94.0 Chondrocostal junction syndrome [Tietze] (principal); I25.10 Atherosclerotic heart disease of native coronary artery without angina pectoris; E78.00 Pure hypercholesterolemia, unspecified; I25.2 Old myocardial infarction; Z79.899 Other long term (current) drug therapy; Z79.82 Long term (current) use of aspirin
CPT/HCPCS: 36415; 71045; 80053; 83690; 84484; 85025; 93005; 96372; 99284; A9270

== ENCOUNTER 2023-02-25 13:13 | Outpatient (CLI) | payer MEDICARE, OTHER ==
--- NOTE | 2023-02-25 18:29 | XRAY Report ---
PROCEDURE: Shoulder 3 View BILAT INDICATIONS: SHOULDER PAIN TECHNIQUE: 3 views of the shoulder were acquired. COMPARISON: None. FINDINGS: Bones: No fractures or dislocations. No suspicious bony lesions. Visualized ribs appear intact. Se susan glenohumeral joint space narrowing with subchondral sclerosis and anterior osteophyte on the lef t. Flattening the humeral head. On the right, there is severe joint space narrowing with smaller breanna inal osteophyte without significant remodeling. Soft tissues: No suspicious soft tissue calcifications. IMPRESSION: Severe bilateral arthritis, left greater than right Reviewed by: Alec Chavez MD on 02/25/2023 5:28 PM AKDT Approved by: Alec Chavez MD on 02/25/2023 5:28 PM AKDT Station ID: [id number]
== END 2023-02-25 13:14 | disposition home or self-care (01) ==
LOC: DI 13:13
PROVIDERS: ATTEND Internal Medicine
DX: M19.011 Primary osteoarthritis, right shoulder (principal); M19.012 Primary osteoarthritis, left shoulder

== ENCOUNTER 2023-05-07 10:59 | Outpatient (CLI) | payer MEDICARE, OTHER ==
--- NOTE | 2023-05-08 00:24 | XRAY Report ---
PROCEDURE: Ankle 3 View LT INDICATIONS: PAIN IN LEFT ANKLE TECHNIQUE: 3 views of the ankle were acquired. COMPARISON: None. FINDINGS: Bones: No fractures or dislocations. Ankle mortise is normally aligned. No suspicious bony lesions . Mild midfoot degenerative changes. Small plantar calcaneal enthesophyte. Calcifications of the pl seema fascia. Soft tissues: No tibiotalar joint effusion. Achilles tendon appears normal. IMPRESSION: No acute osseous abnormality. Mild midfoot degenerative changes. Small plantar calcaneal enthesophyte. Plantar fascial calcifications. Reviewed by: Michaela Solis MD on 05/08/2023 12:23 AM PDT Approved by: Michaela Solis MD on 05/08/2023 12:23 AM PDT Station ID: [id number]
== END 2023-05-07 11:00 | disposition home or self-care (01) ==
LOC: DI 10:59
PROVIDERS: ATTEND Internal Medicine
DX: M19.072 Primary osteoarthritis, left ankle and foot (principal); M77.32 Calcaneal spur, left foot

== ENCOUNTER 2023-05-25 12:06 | Outpatient (CLI) | payer MEDICARE, OTHER ==
--- NOTE | 2023-05-25 16:21 | XRAY Report ---
PROCEDURE: Cervical Spine 2 View INDICATIONS: NECK PAIN TECHNIQUE: 3 view(s) of the cervical spine were acquired. COMPARISON: None. FINDINGS: Bones: No fractures or dislocations to the C7 level. The lateral masses of C1 appear intact on the odontoid view. No suspicious bony lesions. Severe disc height loss at all levels. Straightening of t he normal cervical lordosis. Diffuse facet arthrosis. Soft tissues: No prevertebral soft tissue swelling. IMPRESSION: Severe, multilevel degenerative disc disease and facet arthrosis. Reviewed by: Ata Peoples on 05/25/2023 4:20 PM [facility] Approved by: Ata Peoples on 05/25/2023 4:20 PM [facility] Station ID: [id number]
== END 2023-05-25 12:07 | disposition home or self-care (01) ==
LOC: DI 12:06
PROVIDERS: ATTEND Internal Medicine
DX: M47.812 Spondylosis without myelopathy or radiculopathy, cervical region (principal); M50.30 Other cervical disc degeneration, unspecified cervical region

== ENCOUNTER 2023-11-03 13:33 | Emergency (ER) | payer MEDICARE, OTHER ==
[2023-11-03 14:03] VITALS: O2SAT 97
[2023-11-03 14:13] LABS: BASOPHILS % (AUTO) 0.7 %; EOSINOPHILS # (AUTO) 0.4 10^3/uL (0.0-0.7); EOSINOPHILS % (AUTO) 6.6 %; HCT - HEMATOCRIT 40.6 % (42.0-52.0); HGB - HEMOGLOBIN 13.3 g/dL (14.0-18.0); LYMPHOCYTES # (AUTO) 1.5 10^3/uL (1.5-3.5); LYMPHOCYTES % (AUTO) 27.9 %; MEAN CORPUSCULAR HGB CONC 32.8 g/dL (32.0-36.0); MEAN CORPUSCULAR VOLUME 88.6 fL (80.0-94.0); MEAN PLATELET VOLUME 10.6 fL (7.4-11.4); MONOCYTES # (AUTO) 0.6 10^3/uL (0.0-1.0); MONOCYTES % (AUTO) 10.3 %; NEUTROPHILS # (AUTO) 2.9 10^3/uL (1.5-6.6); NEUTROPHILS % (AUTO) 54.3 %; PLT - PLATELET COUNT 175 10^3/uL (130-450); RED BLOOD COUNT 4.58 10^6/uL (4.70-6.10); RED CELL DISTRIBUTION WIDTH 12.6 % (12.0-15.0); WHITE BLOOD COUNT 5.4 x10^3/uL (4.8-10.8)
[2023-11-03 14:27] LABS: ALBUMIN/GLOBULIN RATIO 1.5 (1.0-2.2); BILIRUBIN,TOTAL 0.9 mg/dL (0.2-1.0); CALCIUM 9.8 mg/dL (8.5-10.3); CREATININE 0.9 mg/dL (0.6-1.3); POTASSIUM 4.5 mmol/L (3.5-4.5); TOTAL PROTEIN 6.6 g/dL (6.4-8.9)
--- NOTE | 2023-11-03 15:19 | ED Physician Documentation ---
History of Present Illness - Stated complaint Stated Complaint: NECK PX,STOMACH PX - Chief complaint Chief Complaint: General - History obtained from History obtained from: Patient - Additonal information Additional information: 88-year-old gentleman with history of coronary disease, hypertension, but generally pretty healthy calling himself "a gym rat." He has 2 things he would like evaluated today. He has neck pain, it has been going on for years, worse over the last 3 months. Radiates to the shoulders bilaterally worse if he turns his head. There was no injury. Secondly for several days he had some abdominal discomfort, fatigue, feels like he is constipated and was nauseous, wonders if he might have diverticulitis. PD PAST MEDICAL HISTORY - Past Medical History Past Medical History: Yes Cardiovascular: High cholesterol, Coronary artery disease, [place] Respiratory: None Endocrine/Autoimmune: None GI: GERD, Diverticulitis : None HEENT: None Psych: None Musculoskeletal: None Derm: None - Past Surgical History Past Surgical History: Yes General: Other Ortho: Knee replacement, Arthroscopic surgery Cardiovascular: Coronary stent - Present Medications Home Medications: Ambulatory Orders Medication Instructions Recorded Confirmed Aspirin [Aspir 81] 81 mg PO DAILY 04/07/13 10/01/17 Metoprolol Succinate [Toprol Xl] 25 mg PO DAILY 04/07/13 10/01/17 Omeprazole Magnesium [Prilosec] 10 mg PO DAILY 04/07/13 10/01/17 Rosuvastatin Calcium [Crestor] 20 mg PO DAILY 10/28/15 10/01/17 Finasteride 5 mg PO DAILY #15 tablet 07/19/16 10/01/17 Doxycycline Monohydrate 100 mg PO BID #10 cap 04/17/22 Meloxicam [Mobic] 7.5 mg PO BID PRN #20 tablet 01/13/23 Dicyclomine [Bentyl] 1 - 2 tab PO QID PRN #20 cap 11/03/23 Ondansetron Odt [Zofran] 4 mg TL Q6H PRN #10 tablet 11/03/23 - Allergies Allergies/Adverse Reactions: Allergies Allergy/AdvReac Type Severity Reaction Status Date / Time No Known Drug Allergies Allergy Verified 11/03/23 13:49 - Social History Does the pt smoke?: No Smoking Status: Never smoker Does the pt drink ETOH?: Yes ETOH Use: Wine Does the pt have substance abuse?: No - Immunizations Immunizations are current?: Yes Immunizations: TDAP current <10years - POLST Patient has POLST: No PD ED PE NORMAL - Vitals Vital signs reviewed: Yes - General General: Alert and oriented X 3, No acute distress - HEENT HEENT: PERRL, EOMI - Neck Neck: Supple, no meningeal sign, No bony TTP, Other (Full range of motion of the neck without pain) - Abdomen Abdomen: Other (Hyperactive bowel sounds, no tenderness per se. No surgical signs.) Results - Vitals Vitals: Vital Signs - 24 hr 11/03/23 13:50 Temperature 36.4 C L Heart Rate 52 L Respiratory 18 Rate Blood Pressure 149/95 H O2 Saturation 97 Oxygen O2 Source Room air - Labs Labs: Laboratory Tests 11/03/23 11/03/23 11/03/23 14:00 14:07 14:07 WBC 5.4 RBC 4.58 L Hgb 13.3 L Hct 40.6 L MCV 88.6 MCH 29.0 MCHC 32.8 RDW 12.6 Plt Count 175 MPV 10.6 Neut # (Auto) 2.9 Lymph # (Auto) 1.5 [place] # (Auto) 0.6 Eos # (Auto) 0.4 Baso # (Auto) 0.0 Absolute Nucleated RBC 0.00 Nucleated RBC % 0.0 Sodium 126 L Potassium 4.5 Chloride 94 L Carbon Dioxide 30 Anion Gap 2.0 L BUN 17 Creatinine 0.9 Estimated GFR (MDRD) 80 L Glucose 115 H Calcium 9.8 Total Bilirubin 0.9 AST 26 ALT 17 Alkaline Phosphatase 50 Total Protein 6.6 Albumin 4.0 Globulin 2.6 Albumin/Globulin Ratio 1.5 Lipase 49 Urine Color DARK YELLOW Urine Clarity CLEAR Urine pH 6.0 Ur Specific [place] >=1.030 H Urine Protein NEGATIVE Urine Glucose (UA) NEGATIVE Urine Ketones NEGATIVE Urine Occult Blood NEGATIVE Urine Nitrite NEGATIVE Urine Bilirubin SMALL H Urine Urobilinogen 0.2 (NORMAL) Ur Leukocyte Esterase NEGATIVE Ur Microscopic Review NOT INDICATED Urine Culture Comments NOT INDICATED - Rads (name of study) CT of the cervical spine showing severe diffuse spondylosis. No acute findings. Relevant Findings:: Final report received, EMP independent interpretation of test CT of the abdomen pelvis demonstrating diverticulosis, minimal stool and lumbar back disease. Relevant Findings:: Final report received, EMP independent interpretation of test PD Medical Decision Making - ED course ED course: This is a very pleasant 88-year-old gentleman who presents for the evaluation of abdominal pain and neck pain. Seemingly unrelated complaints. Differential diagnosis for the neck would mostly be degenerative disease but malignancy is on there given his age. For the abdominal pain, the gamut of intra-abdominal issues must be considered. As such an extensive workup was undertaken showing an unremarkable CBC, CMP was notable for mild hyponatremia which she says has been mentioned in the past. We discussed free water restriction and follow-up for that. As far as the abdominal pain, it does not seem like an emergent issue more like cramps and he is nontender. We will treat that pending follow-up. Departure - Departure Disposition: 01 Home, Self Care Clinical Impression: Neck pain, Hyponatremia Abdominal pain Qualifiers: Abdominal location: generalized Qualified Code(s): R10.84 - Generalized abdominal pain Condition: Good Record reviewed to determine appropriate education?: Yes Instructions: ED Abdominal Pain Unkn Cause Male Prescriptions: Dicyclomine [Bentyl] 1 - 2 tab PO QID PRN #20 cap PRN Reason: Abdominal Pain Ondansetron Odt [Zofran] 4 mg TL Q6H PRN #10 tablet PRN Reason: Nausea / Vomiting Comments: I sent your prescription electronically to the [facility] pharmacy. As far as the neck pain goes you do have a lot of arthritis in the neck but no other worrisome findings. As far as the abdominal issues go it sounds like cramps, your CAT scan was relatively unremarkable. Your labs were notable for low sodium at 126. Limit free water to 3 L a day and follow-up with your doctor in a week for recheck of this. Return for new or worsening symptoms. Forms: PCP List
[2023-11-03] MEDS ORDERED: iohexoL-300 100 ML VIAL ONE (15:32)
[2023-11-03 15:44] LABS: BILIRUBIN,URINE SMALL (NEGATIVE); GLUCOSE, URINE (UA) NEGATIVE (NEGATIVE); KETONES,URINE (UA) NEGATIVE (NEGATIVE); LEUKOCYTE ESTERASE, URINE NEGATIVE (NEGATIVE); NITRITE,URINE NEGATIVE (NEGATIVE); OCCULT BLOOD,URINE NEGATIVE (NEGATIVE); PROTEIN,URINE NEGATIVE (NEGATIVE); UROBILINOGEN,URINE 0.2 (NORMAL) E.U./dL (NORMAL)
[2023-11-03 15:47] LABS: CLARITY,URINE CLEAR (CLEAR)
[2023-11-03] MEDS: iohexoL-300 100 ML VIAL IVP ONE (16:08)
--- NOTE | 2023-11-03 16:23 | CT Report ---
PROCEDURE: Cervical Spine WO INDICATIONS: neck pain TECHNIQUE: Noncontrast 3 mm thick sections acquired from the skull base to the T4 level. Sagittal and coronal r eformats were then constructed. For radiation dose reduction, the following was used: automated exp osure control, adjustment of mA and/or kV according to patient size. COMPARISON: None FINDINGS: Image quality: Excellent. Bones: No fractures or dislocations. Visualized superior ribs are intact. Severe cervical spondylo sis with advanced multilevel disc space loss and uncovertebral joint osteophytes. There is a degree o f canal stenosis at C5-C6 and C6-C7. There is multilevel foraminal narrowing. Soft tissues: Prevertebral soft tissues are normal in thickness. No paravertebral hematomas. No ap ical pneumothoraces. IMPRESSION: 1. No acute cervical fracture or dislocation. 2. Severe diffuse cervical spondylosis. Reviewed by: Joaquín Wolfe MD on 11/03/2023 4:22 PM PDT Approved by: Joaquín Wolfe MD on 11/03/2023 4:22 PM PDT Station ID: [id number]
--- NOTE | 2023-11-03 16:46 | CT Report ---
PROCEDURE: Abdomen/Pelvis W INDICATIONS: IV only, abdominal pain CONTRAST: [id number] 100ML TECHNIQUE: After the administration of intravenous contrast, a CT scan of the abdomen and pelvis was performed. Images were recorded and evaluated at appropriate window settings. Reformats: coronal and sagittal. F or radiation dose reduction, the following was used: automated exposure control, adjustment of mA and /or kV according to patient size. COMPARISON: CT of the abdomen and pelvis dated 09/30/2022. FINDINGS: Image quality: Diagnostic. Lower chest: Unremarkable. Liver: No solid mass. Gallbladder and biliary tree: Unremarkable. Spleen: No splenomegaly. Pancreas: No pancreatic ductal dilation. Adrenals: No adrenal nodule. Kidneys and ureters: No hydronephrosis. No renal cystic lesion which requires follow up. No solid mas s. Stomach, bowel and peritoneum: No bowel distension. No pathologic free fluid. The appendix is thin-wa lled and gas-filled. There are extensive sigmoid colon diverticular outpouchings present, some of whi ch are partially calcified. No mucosal thickening or pericolonic fat stranding. Lymph nodes: No central or retroperitoneal adenopathy. Vessels: No infrarenal abdominal aorta aneurysm. Scattered atheromatous calcifications are present. T here is ectasia of the bilateral common iliac arteries. PELVIS Reproductive organs: Unremarkable. Bladder: No abnormal wall thickening, accounting for underdistention. Pelvic lymph nodes: No pelvic adenopathy by size criteria. Bones: No aggressive osseous abnormality. 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 Other: There are moderate bilateral fat-containing inguinal hernias. IMPRESSION: 1. No acute intra-abdominal findings. Normal appendix. 2. Diverticulosis. No acute diverticulitis. Of note, there is only minimal stool throughout the colon . No findings to suggest constipation or obstipation. 3. L5-S1 spondylolysis and spondylolisthesis. Reviewed by: Mary Lou Copeland MD on 11/03/2023 4:45 PM PDT Approved by: Mary Lou Copeland MD on 11/03/2023 4:45 PM PDT Station ID: [id number]
[2023-11-03 18:26] VITALS: BP 153/78
== END 2023-11-03 17:40 | disposition home or self-care (01) ==
LOC: ED 13:33
DX: M54.2 Cervicalgia (principal); E87.1 Hypo-osmolality and hyponatremia; R10.84 Generalized abdominal pain; E78.00 Pure hypercholesterolemia, unspecified; I25.10 Atherosclerotic heart disease of native coronary artery without angina pectoris; I25.2 Old myocardial infarction; Z79.82 Long term (current) use of aspirin; Z79.899 Other long term (current) drug therapy
CPT/HCPCS: 36415; 72125; 74177; 80053; 81003; 83690; 85025; 99284; Q9967; 81001; 87086

== ENCOUNTER 2023-12-29 15:32 | Outpatient (CLI) | payer MEDICARE, OTHER | END 2023-12-29 15:33 | disposition home or self-care (01) | LOC: DI 15:32 | PROVIDERS: ATTEND Radiology Diagnostic Radiology | DX: R60.0 Localized edema (principal); I08.0 Rheumatic disorders of both mitral and aortic valves | CPT/HCPCS: 93307 ==

== ENCOUNTER 2024-02-11 14:32 | Outpatient (CLI) | payer MEDICARE, OTHER ==
--- NOTE | 2024-02-11 21:06 | XRAY Report ---
PROCEDURE: Ankle 3+V LT INDICATIONS: LEFT ANKLE PAIN TECHNIQUE: 3 views of the ankle were acquired. COMPARISON: Left ankle radiographs 05/07/2023. FINDINGS: Bones: No acute fractures or dislocations. Ankle mortise is normally aligned. No suspicious bony l esions. Mild degenerative changes at the dorsal midfoot. Small plantar calcaneal enthesophyte. Soft tissues: Calcifications are seen along the plantar aponeurosis. Achilles tendon stripe appears t hickened. IMPRESSION: 1.Mild degenerative changes in the midfoot. 2.Calcaneal enthesopathy and soft tissue calcifications along the plantar aponeurosis. Reviewed by: Aristides Corrigan MD on 02/11/2024 9:04 PM PDT Approved by: Aristides Corrigan MD on 02/11/2024 9:04 PM PDT Station ID: [id number]
== END 2024-02-11 14:33 | disposition home or self-care (01) ==
LOC: DI 14:32
PROVIDERS: ATTEND Internal Medicine
DX: M19.072 Primary osteoarthritis, left ankle and foot (principal); M77.32 Calcaneal spur, left foot; L94.2 Calcinosis cutis

== ENCOUNTER 2024-03-23 11:46 | Outpatient (CLI) | payer MEDICARE, OTHER | END 2024-03-23 11:47 | disposition home or self-care (01) | LOC: LAB 11:46 | PROVIDERS: ATTEND Urology | DX: R97.20 Elevated prostate specific antigen [PSA] (principal) | CPT/HCPCS: 36415; 84153 ==